=== PATIENT | male | born 1995 | race African-American/Black ===

== ENCOUNTER 2020-05-13 07:14 | Outpatient (REF) | payer SELFPAY | END 2020-05-13 07:15 | disposition home or self-care (01) | LOC: HO.LAB 07:14 | PROVIDERS: Visit Provider Internal Medicine | DX: Z20.828 Contact with and (suspected) exposure to other viral communicable diseases (principal) | CPT/HCPCS: C9803; U0003 ==

== ENCOUNTER 2020-05-24 06:05 | Outpatient (REF) | payer OTHER, SELFPAY | END 2020-05-24 06:06 | disposition home or self-care (01) | LOC: HO.LAB 06:05 | PROVIDERS: Visit Provider Internal Medicine | DX: Z20.828 Contact with and (suspected) exposure to other viral communicable diseases (principal) | CPT/HCPCS: C9803; U0003 ==

== ENCOUNTER 2020-06-07 06:49 | Outpatient (REF) | payer OTHER, SELFPAY | END 2020-06-07 06:50 | disposition home or self-care (01) | LOC: HO.LAB 06:49 | PROVIDERS: Visit Provider Internal Medicine | DX: Z20.828 Contact with and (suspected) exposure to other viral communicable diseases (principal) | CPT/HCPCS: C9803; U0003 ==

== ENCOUNTER 2020-07-06 06:04 | Outpatient (REF) | payer OTHER, SELFPAY | END 2020-07-06 06:05 | disposition home or self-care (01) | LOC: HO.LAB 06:04 | PROVIDERS: Visit Provider Internal Medicine | DX: Z20.822 Contact with and (suspected) exposure to COVID-19 (principal) | CPT/HCPCS: 36415; C9803; U0003 ==

== ENCOUNTER 2022-12-08 09:57 | Emergency (ER) | payer OTHER, SELFPAY ==
[2022-12-08 10:02] VITALS: BP 117/87; PULSE 87; RESP 18; TEMP 36.8; O2SAT 97; BMI 27.2
--- NOTE | 2022-12-08 11:07 | ED.GENADULT ---
HPI - General Adult General Chief complaint: General Medical Stated complaint: tick bite Time Seen by Provider: 12/08/22 10:16 History of Present Illness HPI narrative: patient complains of body aches and fatigue for 2 days, he is concerned as he had an imbedded tick that was in his leg and he did not see see it for several days after being in the [place] 2 weeks ago, so tick was embedded for significantly longer than 48 hours He denies any rash he denies fever, no cough no runny nose no headache Related Data Previous Rx's Medication Instructions Recorded doxycycline monohydrate 100 mg 100 mg PO BID 10 days #20 tabs 12/08/22 tablet Allergies Allergy/AdvReac Type Severity Reaction Status Date / Time No Known Allergies Allergy Unverified 03/02/20 16:48 PMFSH Past Medical History Source: nursing notes reviewed Social History Social History Advance Directives: No Advance Directives Information Provided: Yes Physical Exam ED Vital Signs: Vital Signs - 24 hr 12/08/22 10:02 Temperature 98.2 F Pulse Rate 87 Respiratory Rate 18 Blood Pressure 117/87 Pulse Oximetry 97 Oxygen Delivery Method Room Air BMI result Body Mass Index 27.2 general appearance no distress There is no facial asymmetry, pupils equal round react to light extraocular motions intact Pharynx is clear Neck is supple Chest clear to auscultation bilateral Heart no murmur Abdomen soft nontender Extremities full range of motion x4 Skin no rash Course Course Course Narrative: patient who had an embedded tick for many days before he noticed it which was engorged when he removed it now complains of body aches and fatigue A tick panel was sent As he does have the symptoms he is treated for the possibility of Lyme disease with doxycycline Discharge Plan Discharge Clinical Impression: Tick bite Patient Disposition: Home, Self-Care Additional Instructions: you had a tick imbedded for a long time and if the tick is on for over 48 hours there is a chance it could pass Lyme disease or other tick-borne disease As you have symptoms of body aches and fatigue it is possible that could be Lyme or and other tick-borne disease so we are treating with doxycycline for 10 days We will call you if there are any positive results from the tick panel that we sent Return any time any worse condition or any concerns Prescriptions: New doxycycline monohydrate 100 mg tablet 100 mg PO BID 10 Days Qty: 20 0RF Stand Alone Forms: Work/School Release
[2022-12-10 04:43] LABS: A. Phagocytphilium DNA,RT-PCR NOT DETECTED (NOT DETECTED); Babesia Microti DNA, RT-PCR NOT DETECTED (NOT DETECTED); Borrelia Miyamotoi,DNA RT-PCR NOT DETECTED (NOT DETECTED); E.Chaffeensis DNA RT-PCR NOT DETECTED (NOT DETECTED); Lyme(Borrelia ssp)DNA RT-PCR NOT DETECTED (NOT DETECTED)
== END 2022-12-08 11:23 | disposition home or self-care (01) ==
PROVIDERS: Physician Assistant Medical; Emergency Provider Emergency Medicine
DX: M79.10 Myalgia, unspecified site (principal); Z79.899 Other long term (current) drug therapy
CPT/HCPCS: 36415; 87798; 87801; 99283

== ENCOUNTER 2023-11-11 18:56 | Emergency (ER) | payer OTHER, SELFPAY ==
[2023-11-11 19:07] VITALS: BP 125/72; PULSE 103; RESP 18; TEMP 36.6; O2SAT 97; BMI 26.5
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
[2023-11-11] MEDS: Bacitracin Oint 0.9 GM PACKET 5 APPL TOPICAL (20:16)
[2023-11-11] MEDS: Diphth,Pertus(ACell),Tet Adult 0.5 ML SYRINGE IM (20:17)
[2023-11-11] MEDS: Amoxicillin/Potassium Clav 875 MG TABLET PO (20:18)
[2023-11-11 20:30] VITALS: BP 114/66; PULSE 75; RESP 18; TEMP 37.1; O2SAT 99
== END 2023-11-11 21:30 | disposition home or self-care (01) ==
PROVIDERS: Emergency Provider Emergency Medicine
DX: T24.002A Burn of unspecified degree of unspecified site of left lower limb, except ankle and foot, initial encounter (principal); T24.001A Burn of unspecified degree of unspecified site of right lower limb, except ankle and foot, initial encounter; X03.0XXA Exposure to flames in controlled fire, not in building or structure, initial encounter; Y93.9 Activity, unspecified; Y92.9 Unspecified place or not applicable; Y99.9 Unspecified external cause status; Z23 Encounter for immunization
CPT/HCPCS: 16020; 90471; 90715; 99284

== ENCOUNTER 2023-11-16 08:53 | Emergency (ER) | payer OTHER, SELFPAY ==
[2023-11-16 08:58] VITALS: BP 141/94; PULSE 95; RESP 18; TEMP 36.8; O2SAT 97; BMI 26.5
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
[2023-11-16] MEDS: Piperacillin Sodium/Tazobactam 3.375 GM in 0.9 % Sodium Chloride 50 ML IV (09:50)
[2023-11-16] MEDS: 0.9 % Sodium Chloride 1,000 ML 999 ML IV (09:50)
[2023-11-16 09:55] LABS: MANUAL DIFF FLAG NO
[2023-11-16 09:57] LABS: Basophils Absolute Auto 0.1 X10*3/uL (0.0-0.2); Basophils Percent Auto 0.7 % (0-2); Eosinophils Absolute Auto 0.1 X10*3/uL (0.0-0.4); Eosinophils Percent Auto 1.3 % (0-4); Hematocrit 52.3 % (42.0-52.0); Hemoglobin 17.9 g/dl (14.0-18.0); Imm Gran Abs Auto 0.01 X10*3/uL (0.00-0.03); Imm Gran Pct Auto 0.1 % (0.0-0.4); Lymphocytes Absolute Auto 0.7 X10*3/uL (1.2-4.9); Lymphocytes Percent Auto 10.7 % (20-40); Mean Corpuscular HGB Conc 34.2 g/dl (31.0-36.0); Mean Corpuscular Hemoglobin 31.1 pg (27.0-33.0); Mean Corpuscular Volume 90.8 fL (80.0-98.0); Mean Platelet Volume 9.9 fL (9.4-12.4); Monocytes Absolute Auto 0.6 X10*3/uL (0.1-1.2); Monocytes Percent Auto 8.6 % (2-11); Neutrophils Absolute Auto 5.3 x10*3/uL (2.0-8.3); Neutrophils Percent Auto 78.6 % (45-73); Platelet Count 190 X10*3/uL (160-400); Red Blood Count 5.76 X10*6/uL (4.60-5.80); Red Cell Distribution Width 14.4 % (11.0-16.0); White Blood Count 6.7 X10*3/uL (4.8-10.8)
[2023-11-16 10:33] LABS: Lactic Acid 0.9 mmol/L (0.5-2.0)
[2023-11-16 10:36] LABS: Alanine Aminotransferase 144 U/L (0-40); Albumin Level 4.3 g/dL (3.5-5.0); Alkaline Phosphatase 128 U/L (39-117); Anion Gap 14 (12-20); Aspartate Amino Transferase 234 U/L (5-37); Bilirubin Total 3.1 mg/dL (0.0-1.0); Blood Urea Nitrogen 5 mg/dL (9-16); C Reactive Protein 1.38 mg/dL (< or = 0.50); Calcium 9.7 mg/dL (8.4-10.2); Carbon Dioxide 24 mmol/L (22-29); Chloride 101 mmol/L (96-108); Creatinine Clr Calc Pharmacy 153.4; Estimated Glomerular Filt Rate > 60; Glucose Random 111 mg/dL (60-115); Lipase 44 U/L (8-78); Magnesium 1.8 mg/dL (1.6-2.6); Potassium 3.7 mmol/L (3.3-5.1); Sodium 135 mmol/L (135-145); Total Protein 7.3 g/dL (6.5-8.0)
[2023-11-16 10:40] LABS: Erythrocyte Sedimentation Rate 1 MM/HR (0-15)
[2023-11-16] MEDS: Silver Sulfadiazine 1 % Cream 20 GM TUBE 1 APPL TOPICAL (11:00)
[2023-11-16 11:27] VITALS: BP 135/65; PULSE 78; RESP 18; TEMP 36.6; O2SAT 98
== END 2023-11-16 11:28 | disposition home or self-care (01) ==
PROVIDERS: Physician Assistant Medical; Emergency Provider Emergency Medicine; PCP Internal Medicine
DX: T24.002D Burn of unspecified degree of unspecified site of left lower limb, except ankle and foot, subsequent encounter (principal); T24.001A Burn of unspecified degree of unspecified site of right lower limb, except ankle and foot, initial encounter; X08.8XXD Exposure to other specified smoke, fire and flames, subsequent encounter; M79.604 Pain in right leg; Z48.00 Encounter for change or removal of nonsurgical wound dressing
CPT/HCPCS: 36415; 80053; 82550; 83605; 83690; 83735; 85025; 85652; 86140; 87040; 96361; 96374; 99283; 99284; J2543

== ENCOUNTER 2024-11-01 09:22 | Emergency (ER) | payer OTHER, SELFPAY ==
--- NOTE | ~2024-11-01 | CT_ITS ---
EXAMINATION: CT HEAD WITHOUT IV CONTRAST HISTORY: R eye visual loss. cloudy/foggy pupil. TECHNIQUE: Unenhanced helical CT of the head was performed per standard departmental protocol. Coronal and sagittal reformats of the head were also evaluated. One or more of the following techniques was used for dose reduction: Automated exposure control, adjustment of the mA and/or kV according to patient size, use of iterative reconstruction technique. DLP: 806 mGy-cm COMPARISON: There are no prior studies for comparison. FINDINGS: BRAIN: The brain parenchyma is unremarkable. There is normal patel/white differentiation. The ventricular system is normal in size and configuration. There is no mass effect or midline shift. No intra- or extra-axial fluid collections are identified. SINUSES: The visualized paranasal sinuses are clear. The mastoid air cells and middle ear cavities are well pneumatized. ORBITS: The visualized orbits are unremarkable. BONES/SOFT TISSUES: The extracranial soft tissues are unremarkable. The calvarium is intact. No suspicious lytic or sclerotic lesions. CT/CT head/brain wo IV con IMPRESSION: Unremarkable unenhanced head CT. Electronically signed by: Hussain Moser MD 11/01/2024 12:55 PM EDT
[2024-11-01 09:35] VITALS: BP 121/77; PULSE 91; RESP 18; TEMP 36.6; O2SAT 98; BMI 27.2
[2024-11-01] MEDS: Fluorescein Sodium STRIP 1 STRIP EYE-RIGHT (10:53)
[2024-11-01] MEDS: Tetracaine HCl/PF 0.5% Oph Sol 4 ML DROPS 1 DROP EYE-RIGHT (10:53)
--- NOTE | 2024-11-01 11:07 | ED.EYEPROB ---
HPI - Eye Problem General Chief complaint: Eye Problems Stated complaint: eye issue Time Seen by Provider: 11/01/24 10:31 Source: patient, RN notes reviewed and old records reviewed Mode of arrival: ambulatory History of Present Illness ED Provider: Dee Hannon PA-C HPI Narrative: 29-year-old male with a past medical history of amblyopia, cataracts, glaucoma, presenting to the ED complaining of right eye blurry vision/ fogginess x 3 weeks, now with pain to right eye x this morning. Also reports noted cloudiness to pupil x couple weeks. Admits to wearing colored contacts, no glasses. Denies headache, vision loss, flashers, floaters, nausea, vomiting Related Data Previous Rx's ?Medication ?Instructions ?Recorded doxycycline monohydrate 100 mg 100 mg PO BID 10 days #20 tabs 12/08/22 tablet amoxicillin 875 mg-potassium 1 tab PO BID 10 days #20 tabs 11/11/23 clavulanate 125 mg tablet cephalexin 500 mg capsule 500 mg PO BID 7 days #14 caps 11/16/23 ibuprofen 800 mg tablet 800 mg PO Q8H PRN pain (scale 11/16/23 score 4-6) #30 tabs silver sulfadiazine 1 % topical 1 appl topical DAILY #85 grams 11/16/23 cream (Silvadene) Allergies Allergy/AdvReac Type Severity Reaction Status Date / Time No Known Allergies Allergy Verified 11/01/24 09:40 Review of Systems Review of Systems: Yes all other systems are reviewed and are negative Constitutional: Constitutional: Reports as per [facility] Past Medical History Attestation statement: The following information was validated with the patient. Source: old records reviewed Social History Social History Alcohol intake: current Alcohol intake frequency: holidays/special occasions only Substance Use Type: Marijuana Physical Exam Vital Signs: Vital Signs: Last Vital Signs Temp 97.9 F 11/01/24 13:47 Pulse 82 11/01/24 13:47 Resp 16 11/01/24 13:47 BP 134/73 11/01/24 13:47 Pulse Ox 99 11/01/24 13:47 O2 Del Method Room Air 11/01/24 09:35 BMI result Body Mass Index 27.2 Const: General: cooperative, healthy appearing and no acute distress Orientation/consciousness: patient oriented x3 Limitations: no limitations HEENT: Head: Yes normal to inspection and Yes atraumatic Ears: hearing grossly normal bilaterally General nose exam: Normal external nose present Face and sinus: Yes normal facial exam Eyes: Other: + cloudy right pupil. VA not obtainable to R eye - can see waving hand in front of face (UNcorrected) VA left eye 20/25 (corrected) IOP 21-25 bilaterally EOMI w/o entrapment or pain General: appearance normal, both eyes and all related structures Alignment and Position: alignment normal Periorbital: periorbital findings normal Eyelids: Yes eyelids normal Conjunctivae: conjunctivae normal Sclerae: sclerae normal Corneas: corneas normal, corneas abnormal and fluorescein used (Without uptake) Pupils: Equal, round and reactive pupils present EOM: EOMs intact bilaterally Direct Ophthalmoscopy: normal light reflex Neck: Neck: Yes normal visual inspection and Yes no meningeal signs Resp: Effort & Inspection: normal respiratory effort and no respiratory distress Cardio: Rate: regular rate GI: Inspection: Yes normal to inspection Palpation (GI): Soft to palpation, nontender, no guarding and not rigid Skin: Rashes: no rashes Wounds: no wounds Neuro: General: patient oriented x3, tone normal and no meningeal signs Cranial nerves: Yes CN's II-XII intact bilaterally and Yes Equal, round and reactive pupils present Gait exam (Neuro): Normal gait present Extrem: General: Yes normal to inspection Course Course Course Narrative: -1040--optho paged -3540--spoke with Ophthalmology, Dr. Gunter, states patient may be having lens break down causing possible iritis. Recommend patient sees his sports book board attendant, if can not get in his office is available tomorrow. No medications recommended upon discharge. 1329--CT head/brain wo IV con IMPRESSION: Unremarkable unenhanced head CT. Results discussed with patient including worrisome signs and symptoms and strict return precautions, and when to return to the emergency department. They verbalized understanding and feel safe for discharge at this time. Medications Administered Discontinued Medications Generic Name Dose Route Start Last Admin Trade Name Freq PRN Reason Stop Dose Admin Fluorescein Sodium 1 strip 11/01/24 10:31 11/01/24 10:53 Fluorescein Sodium Strip EYE-RIGHT 11/01/24 10:32 1 strip ONCE ONE Administration Tetracaine HCl 1 drop 11/01/24 10:31 11/01/24 10:53 Tetracaine Hcl/Pf 0.5% Oph Winnie 4 Ml Drops EYE-RIGHT 11/01/24 10:32 1 drop ONCE ONE Administration Medical Decision Making Medical Decision Making [facility] Narrative: 29-year-old male with a past medical history of amblyopia, cataracts, glaucoma, presenting to the ED complaining of right eye blurry vision/ fogginess x 3 weeks, now with pain to right eye x this morning. On exam vital signs stable, NAD, nontoxic appearing, cloudy right pupil appreciated. IOP's equal and wnl bilaterally. Fluorescein staining use without uptake. No evidence of globe rupture, preseptal or septal cellulitis. Concern for glaucoma although pressures equal and not elevated as expected. ?brain mass Plan: Ophthalmology consult, head CT Please refer to course for remaining clinical decision making, interpretation of labs/imaging results, and discussions with consultants and/or family members. Differential Diagnosis Differential Diagnoses: The differential diagnosis associated with the presentation includes As above Admission/Observation Consideration of admission/observation: Escalation of care including admission/observation considered Consult Healthcare Provider Management of the patient was discussed with: Sr. Social Media & Mobile Manager (Ophthalmology) Independent Interpretation I performed an independent interpretation of an: CT Scan External Record Review External record reviewed: Inpatient record, Office record, Outpatient record, Prior outpatient labs, Prior outpatient radiology, Primary care record and Outside ED record Tests considered The following testing was considered but not selected: As above Prescription Management I considered prescription management with: Other Chronic Conditions Patient?s care impacted by: Other Social Determinants Patient?s care significantly limited by Social Determinants of Health including: Other Social Determinant of Health Discharge Plan Discharge Clinical Impression: Blurred vision Patient Disposition: Home, Self-Care Instructions: Blurred Vision (ED) Additional Instructions: Your head CT is unremarkable You need to follow up with your sports book board attendant RITESH If you are unable to get in contact with them or an appointment please follow up with Dr. Gunter tomorrow, call to make an appointment If her symptoms persist or worsen, you develop any symptoms to the other eye, persistent or worsening headache, nausea or vomiting return to the ED Prescriptions: No Action doxycycline monohydrate 100 mg tablet 100 mg PO BID 10 Days Qty: 20 0RF amoxicillin-pot clavulanate 875-125 mg tablet 1 tab PO BID 10 Days Qty: 20 0RF silver sulfadiazine [Silvadene] 1 % cream 1 appl topical DAILY Qty: 85 0RF Rx Instructions: apply a 1.5 mm thickness cephalexin 500 mg capsule 500 mg PO BID 7 Days Qty: 14 0RF ibuprofen 800 mg tablet 800 mg PO Q8H PRN (Reason: pain (scale score 4-6)) Qty: 30 0RF Referrals: Cameron Gunter [Physician] - 1 day Stand Alone Forms: Work/School Release Interventions: ED Discharge Assessment Last Done: 11/01/24 13:47 Discharge Date/Time: 11/01/24 13:48 Print Language: Montenegrin
[2024-11-01 12:00] VITALS: BP 134/73; PULSE 82; RESP 16; TEMP 36.6; O2SAT 99
[2024-11-01 13:47] VITALS: BP 134/73; PULSE 82; RESP 16; TEMP 36.6; O2SAT 99
--- NOTE | 2024-11-01 13:48 | PC.NURSE ---
Discharge instructions reviewed and patient verbalized understanding. Patient to f/u with optho pedro. Ambulated out of the department with a steady gait.
== END 2024-11-01 13:48 | disposition home or self-care (01) ==
PROVIDERS: Emergency Provider Emergency Medicine; PCP Internal Medicine
DX: H53.8 Other visual disturbances (principal); H54.61 Unqualified visual loss, right eye, normal vision left eye
CPT/HCPCS: 70450; 99283; 99284

== ENCOUNTER → 2024-11-01 11:32 | Outpatient (BNV) | payer OTHER, SELFPAY | PROVIDERS: Emergency Provider Emergency Medicine; PCP Internal Medicine; Visit Provider Radiology Diagnostic Radiology | DX: H53.131 Sudden visual loss, right eye (principal); H21.569 Pupillary abnormality, unspecified eye | CPT/HCPCS: 70450 ==